=== PATIENT | female | born 1945 | race Caucasian/White ===

== ENCOUNTER 2017-10-21 10:39 | Outpatient (CLI) | payer OTHER | END 2017-10-21 11:00 | disposition home or self-care (01) | LOC: NUCLEAR 10:39 | DX: M81.0 Age-related osteoporosis without current pathological fracture (principal) ==

== ENCOUNTER 2018-09-14 07:16 | Outpatient (CLI) | payer OTHER | END 2018-09-14 07:20 | disposition home or self-care (01) | LOC: MAMO-SONO 07:16 | DX: Z12.31 Encounter for screening mammogram for malignant neoplasm of breast (principal); Z87.898 Personal history of other specified conditions; N60.11 Diffuse cystic mastopathy of right breast; N60.12 Diffuse cystic mastopathy of left breast; Z01.419 Encounter for gynecological examination (general) (routine) without abnormal findings ==